=== PATIENT | female | born 1985 | race Caucasian/White ===

== ENCOUNTER 2018-10-30 00:23 | Emergency (ER) | payer OTHER ==
--- NOTE | 2018-10-30 00:38 | EDPHY ---
H & P Stated Complaint: BAILEY, N/V/D abd pain, chills Time Seen by Provider: 10/30/18 00:38 HPI/ROS: HPI CHIEF COMPLAINT: Nausea vomiting low back pain HISTORY OF PRESENT ILLNESS: 33-year-old female, suffers from chronic back pain due to herniated disc, otherwise healthy presents emergency room nausea vomiting after taking tramadol and baclofen. She states she has been taking tramadol for approximately 2 days and gotten upset stomach tonight with nausea vomiting. Also complains of a mild headache. No neck pain no fever no chest pain no shortness of breath. Denies any abdominal pain but did have 1 episode of vomiting prior to arrival. Does state her back pain is slightly better with the tramadol and baclofen over the past day but has had low back pain for 5 days. No urinary symptoms. Denies being . Past Medical History: Chronic low back Past Surgical History: No recent surgical history Social History: Denies drugs alcohol tobacco. Family History: Noncontributory ROS REVIEW OF SYSTEMS: 10 Systems were reviewed and negative with the exception of the elements mentioned in the history of present illness. Exam Constitutional nontoxic no acute distress triage nursing summary reviewed, vital signs reviewed, awake/alert. Eyes normal conjunctivae and sclera, EOMI, PERRLA. HENT normal inspection, atraumatic, moist mucus membranes, no epistaxis, neck supple/ no meningismus, no raccoon eyes. Respiratory clear to auscultation bilaterally, normal breath sounds, no respiratory distress, no wheezing. Cardiovascular rate normal, regular rhythm, no murmur, no edema, distal pulses normal. Gastrointestinal soft, non-tender, no rebound, no guarding, normal bowel sounds, no distension, no pulsatile mass. Genitourinary no CVA tenderness. Musculoskeletal no significant midline tenderness, no step-offs, no crepitus, no midline vertebral tenderness, full range of motion, no calf swelling, no tenderness of extremities, no meningismus, good pulses, neurovascularly intact. Skin pink, warm, & dry, no rash, skin atraumatic. Neurologic awake, alert and oriented x 3, AAOx3, moves all 4 extremities equally, motor intact, sensory intact, CN II-XII intact, normal cerebellar, normal vision, normal speech. Psychiatric normal mood/affect. Heme/Lymph/Immune no lymphadenopathy. Differential Diagnosis: Differential diagnosis includes but is not limited to and in no particular order: Bowel obstruction, appendicitis, gallbladder disease, diverticulitis, colitis, enteritis, perforated viscus, gastritis, GERD , esophagitis, urinary tract infection, pyelonephritis, kidney stones Medical Decision Making: Plan for this patient IV establishment IV fluid bolus , Zofran for nausea, basic blood work, UA. Her back pain is a chronic issue she has been taking tramadol and baclofen for this. She has been taking rather large amount of travel in all over the past 2 days. This may precipitated her nausea vomiting. She had no seizure activity. Plan for IV fluids, basic blood work and re-evaluate. Re-evaluation: 0310: Patient re-evaluated this time resting comfortably no acute distress. Her nausea vomiting is much improved. She denies any abdominal pain or back pain at this time. I believe her nausea vomiting is due to the tramadol. I do recommend she cuts back drastically on how much tramadol she is taking. She has not had any vomiting here. Vital signs are stable. Re-examination of her abdomen is soft nontender. Patient feels better would like to go home. Return precautions discussed with the patient she understands return emergency room if develops worsening abdominal pain back pain, fever, vomiting or not doing well. The patient's abdomen is soft nontender. However return precautions discussed with her. We did not do a CT scan. Return precautions discussed. Abdomen soft nontender no vomiting. Vital signs stable and blood work stable. Source: Patient - Personal History LMP (Females 10-55): 8-14 Days Ago Current Tetanus/Diphtheria Vaccine: Yes - Medical/Surgical History Hx Asthma: No Hx Chronic Respiratory Disease: No Hx Diabetes: No Hx Cardiac Disease: No Hx Renal Disease: No Hx Cirrhosis: No Hx Alcoholism: No Hx HIV/AIDS: No Hx Splenectomy or Spleen Trauma: No Other PMH: herniated disc L4-L5 - Social History Smoking Status: Never smoked Constitutional: Initial Vital Signs Temperature (C) 36.3 C 10/30/18 00:24 Heart Rate 97 10/30/18 00:24 Respiratory Rate 18 10/30/18 00:24 Blood Pressure 137/89 H 10/30/18 00:24 O2 Sat (%) 96 10/30/18 00:24 O2 Delivery Mode Room Air Allergies/Adverse Reactions: No Known Allergies Allergy (Unverified 10/30/18 00:28) Home Medications: Medication Instructions Recorded Baclofen 10/30/18 traMADol HCL/ACETAMINOPHEN 10/30/18 Medical Decision Making - Data Points Laboratory Results: Laboratory Results 10/30/18 01:00 10/30/18 01:00 10/30/18 10/30/18 10/30/18 01:00 01:00 01:00 WBC RBC Hgb Hct MCV MCH MCHC RDW Plt Count MPV Neut % (Auto) Lymph % (Auto) Roberts % (Auto) Eos % (Auto) Baso % (Auto) Nucleat RBC Rel Count Absolute Neuts (auto) Absolute Lymphs (auto) Absolute Monos (auto) Absolute Eos (auto) Absolute Basos (auto) Absolute Nucleated RBC Immature Gran % Immature Gran # Sodium 138 mEq/L mEq/L (135-145) Potassium 4.2 mEq/L mEq/L (3.5-5.2) Chloride 104 mEq/L mEq/L (97-110) Carbon Dioxide 24 mEq/l mEq/l (22-31) Anion Gap 10 mEq/L mEq/L (6-14) BUN 15 mg/dL mg/dL (7-23) Creatinine 0.8 mg/dL mg/dL (0.6-1.0) Estimated GFR > 60 Glucose 95 mg/dL mg/dL (70-100) Calcium 9.5 mg/dL mg/dL (8.5-10.4) Total Bilirubin 0.5 mg/dL mg/dL (0.1-1.4) Conjugated Bilirubin 0.2 mg/dL mg/dL (0.0-0.5) Unconjugated Bilirubin 0.3 mg/dL mg/dL (0.0-1.1) AST 27 IU/L IU/L (14-46) ALT 22 IU/L IU/L (9-52) Alkaline Phosphatase 51 IU/L IU/L (38-126) Total Protein 7.8 g/dL g/dL (6.3-8.2) Albumin 4.7 g/dL g/dL (3.5-5.0) Lipase 115 IU/L IU/L (23-300) Beta HCG, Qual NEGATIVE Urine Color YELLOW Urine Appearance MODERATELY TURBID Urine pH 8.0 H (5.0-7.5) Ur Specific [place] 1.016 (1.002-1.030) Urine Protein NEGATIVE (NEGATIVE) Urine Ketones NEGATIVE (NEGATIVE) Urine Blood NEGATIVE (NEGATIVE) Urine Nitrate NEGATIVE (NEGATIVE) Urine Bilirubin NEGATIVE (NEGATIVE) Urine Urobilinogen NEGATIVE EU EU (0.2-1.0) Ur Leukocyte Esterase NEGATIVE (NEGATIVE) Urine Glucose NEGATIVE (NEGATIVE) 10/30/18 01:00 WBC 7.61 10^3/uL 10^3/uL (3.80-9.50) RBC 4.68 10^6/uL 10^6/uL (4.18-5.33) Hgb 11.8 g/dL L g/dL (12.6-16.3) Hct 36.3 % L % (38.0-47.0) MCV 77.6 fL L fL (81.5-99.8) MCH 25.2 pg L pg (27.9-34.1) MCHC 32.5 g/dL g/dL (32.4-36.7) RDW 16.0 % H % (11.5-15.2) Plt Count 235 10^3/uL 10^3/uL (150-400) MPV 10.9 fL fL (8.7-11.7) Neut % (Auto) 69.6 % % (39.3-74.2) Lymph % (Auto) 22.7 % % (15.0-45.0) Roberts % (Auto) 5.7 % % (4.5-13.0) Eos % (Auto) 1.3 % % (0.6-7.6) Baso % (Auto) 0.4 % % (0.3-1.7) Nucleat RBC Rel Count 0.0 % % (0.0-0.2) Absolute Neuts (auto) 5.30 10^3/uL 10^3/uL (1.70-6.50) Absolute Lymphs (auto) 1.73 10^3/uL 10^3/uL (1.00-3.00) Absolute Monos (auto) 0.43 10^3/uL 10^3/uL (0.30-0.80) Absolute Eos (auto) 0.10 10^3/uL 10^3/uL (0.03-0.40) Absolute Basos (auto) 0.03 10^3/uL 10^3/uL (0.02-0.10) Absolute Nucleated RBC 0.00 10^3/uL 10^3/uL (0-0.01) Immature Gran % 0.3 % % (0.0-1.1) Immature Gran # 0.02 10^3/uL 10^3/uL (0.00-0.10) Sodium Potassium Chloride Carbon Dioxide Anion Gap BUN Creatinine Estimated GFR Glucose Calcium Total Bilirubin Conjugated Bilirubin Unconjugated Bilirubin AST ALT Alkaline Phosphatase Total Protein Albumin Lipase Beta HCG, Qual Urine Color Urine Appearance Urine pH Ur Specific [place] Urine Protein Urine Ketones Urine Blood Urine Nitrate Urine Bilirubin Urine Urobilinogen Ur Leukocyte Esterase Urine Glucose Medications Given: Discontinued Medications Sodium Chloride (Ns) 1,000 mls @ 0 mls/hr IV EDNOW ONE; Wide Open PRN Reason: Protocol Stop: 10/30/18 00:44 Last Admin: 10/30/18 00:58 Dose: Not Given Sodium Chloride (Ns) 1,000 mls @ 0 mls/hr IV EDNOW ONE; Wide Open PRN Reason: Protocol Stop: 10/30/18 00:44 Last Admin: 10/30/18 00:58 Dose: 1,000 mls Ondansetron HCl (Zofran) 4 mg IVP EDNOW ONE Stop: 10/30/18 00:44 Last Admin: 10/30/18 00:58 Dose: 4 mg Departure - Departure Disposition: Home, Routine, Self-Care Clinical Impression: Vomiting Condition: Good Instructions: Acute Nausea and Vomiting (ED) Additional Instructions: 1. [place] diet over the next 24-48 hours 2. Return to the emergency room if worsening abdominal pain, fever, vomiting. Referrals: NONE *PRIMARY CARE P,. [Primary Care Provider] - As per Instructions
[2018-10-30] MEDS ORDERED: NS 1,000 ML IV ONE (00:43)
[2018-10-30] MEDS ORDERED: ONDANSETRON 4 MG/2 ML VIAL IVP ONE (00:43)
[2018-10-30] MEDS: NS 1,000 ML IV ONE ×2 (00:57→00:58)
[2018-10-30 01:33] LABS: PLATELET COUNT 235 10^3/uL (150-400)
[2018-10-30 03:09] VITALS: BP 122/84
== END 2018-10-30 03:24 | disposition home or self-care (01) ==
DX: R11.2 Nausea with vomiting, unspecified (principal); M54.5 Low back pain; E86.9 Volume depletion, unspecified
CPT/HCPCS: 96374; J2405